=== PATIENT | female | born 1960 | race Caucasian/White ===

== ENCOUNTER 2016-06-26 20:22 | Inpatient (IN) | payer MEDICARE, MEDICAID ==
[2016-06-26] VITALS (16 sets, daily range): BP systolic 123; BP diastolic 90; PULSE 93; TEMP 97.7; O2SAT 90–99
[~2016-06-26] VITALS: Ht 170.2 cm; Wt 82.2 kg
[~2016-06-26 20:22] MED LIST: CALCIUM 600/VIT1 CAP PO; CELEBREX 200MG200 MG PO; COLACE 100100 MG/CAP PO; COUMADIN 5MG5 MG/TAB PO; COUMADIN 77.5 MG/TAB PO; FLEXERIL 1010 MG/TAB PO; FOLIC ACID 11 MG/TA1 PO; HCTZ 25MG TAB25 MG; HCTZ12.5TAB PO; IRON325 M1 PO; LASIX 20MG TABL20 MG PO; MIRALAX PA17 GM/Dose PO; NATURE'S BLEND100 M2 PO; PEPCID 20MG TAB20 MG PO; PERCOCET 325 MG1 TA2 PO; PROTONIX 40MG T40 MG PO; RELAFEN750 MG PO; RT ADVAIR 528 DISKUS IH; THERAGRAN TAB1 UDTAB PO; TYLENOL 325MG325 MG PO; VALIUM 5MG T5 MG/TAB PO; ZESTRIL 20MG TA20 MG PO
[2016-06-26 21:14] LABS: BASO % 0.9 % (0.0-2.0); EOS # 0.1 (0.0-0.7); EOS % 1.2 % (0-4.0); GRAN # 2.5 (1.4-6.5); GRAN % 57.5 % (42.2-75.2); LYMPH # 1.1 (1.2-3.4); LYMPH % 25.6 % (20.0-51.0); MEAN CELL VOLUME 110 fl (80.0-100.0); MEAN CORPUSCULAR HGB CONC 33 g/dl (33.0-37.0); MEAN PLATELET VOLUME 8.7 fl (7.4-10.4); MONO # 0.6 (0.1-0.6); MONO % 13.6 % (1.7-9.3); PLATELET COUNT 271 K/mm3 (130-400); RED BLOOD COUNT 2.11 M/mm3 (4.10-5.30); REDCELL DISTRIBUTION WIDTH-CV 14.8 % (11.5-14.5); WHITE BLOOD COUNT 4.3 K/mm3 (4.8-10.8)
[2016-06-26 21:16] LABS: HEMATOCRIT 23.2 % (37.0-47.0); HEMOGLOBIN 7.6 g/dl (12.5-16.0); MEAN CORPUSCULAR HEMOGLOBIN 36 pg (27.0-31.0)
[2016-06-26 21:21] LABS: PROTHROMBIN TIME 11.4 SECONDS (9.7-12.8)
[2016-06-26 21:25] LABS: ADJUSTED CALCIUM 7.9 mg/dL (8.4-10.2); ALANINE AMINOTRANSFERASE 53 U/L (9-52); ALBUMIN 4.8 gm/dL (3.5-5.0); ALKALINE PHOSPHATASE 159 U/L (50-136); ANION GAP 23 mmol/L (7-16); BILIRUBIN,TOTAL 1.5 mg/dL (0.0-1.0); BLOOD UREA NITROGEN 17 mg/dL (7-17); CALCIUM 8.5 mg/dL (8.4-10.2); CARBON DIOXIDE 26 mmol/L (22-30); CHLORIDE 90 mmol/L (98-107); CREATININE, serum 1.16 mg/dL (0.52-1.25); GLUCOSE 88 mg/dL (74-106); LIPASE 190 U/L (23-300); POTASSIUM 3.6 mmol/L (3.4-5.0); SODIUM 139 mmol/L (137-145); TOTAL PROTEIN 7.4 gm/dL (6.4-8.2)
[2016-06-26 21:47] LABS: TROPONIN-I < 0.012 ng/mL (0.000-0.034)
[2016-06-27] VITALS (922 sets, daily range): BP systolic 99–137; BP diastolic 17–99; PULSE 89–134; TEMP 97.7–99.3; O2SAT 62–100
[2016-06-27 06:16] LABS: MEAN CELL VOLUME 113 fl (80.0-100.0); MEAN CORPUSCULAR HGB CONC 32 g/dl (33.0-37.0); MEAN PLATELET VOLUME 8.8 fl (7.4-10.4); PLATELET COUNT 203 K/mm3 (130-400); RED BLOOD COUNT 1.67 M/mm3 (4.10-5.30); REDCELL DISTRIBUTION WIDTH-CV 14.8 % (11.5-14.5); WHITE BLOOD COUNT 3.1 K/mm3 (4.8-10.8)
[2016-06-27 06:19] LABS: HEMATOCRIT 18.8 % (37.0-47.0); MEAN CORPUSCULAR HEMOGLOBIN 36 pg (27.0-31.0)
[2016-06-27 06:22] LABS: ADD PATHOLOGY DIFF REVIEW NO
[2016-06-27 06:30] LABS: CALCIUM 7.4 mg/dL (8.4-10.2); CREATININE, serum 1.14 mg/dL (0.52-1.25); POTASSIUM 3.4 mmol/L (3.4-5.0)
[2016-06-27 07:27] LABS: BAND 12 % (0-10); BASOPHIL 1 % (0-2); EOSINOPHIL 3 % (0-4); METAMYELOCYTE 2 % (0-0); MICROCYTOSIS 1+; NEUTROPHILS 51 % (42.0-75.2); PLATELET ESTIMATE NORMAL (NORMAL); TOTAL CELLS COUNTED 100
[2016-06-28] VITALS (371 sets, daily range): BP systolic 104–155; BP diastolic 66–93; PULSE 86–108; TEMP 97.2–99; O2SAT 53–100
[2016-06-28 06:14] LABS: MEAN CELL VOLUME 113 fl (80.0-100.0); MEAN CORPUSCULAR HGB CONC 32 g/dl (33.0-37.0); MEAN PLATELET VOLUME 8.9 fl (7.4-10.4); PLATELET COUNT 175 K/mm3 (130-400); RED BLOOD COUNT 1.69 M/mm3 (4.10-5.30); REDCELL DISTRIBUTION WIDTH-CV 14.6 % (11.5-14.5)
[2016-06-28 06:20] LABS: HEMATOCRIT 19.1 % (37.0-47.0); HEMOGLOBIN 6.1 g/dl (12.5-16.0); MEAN CORPUSCULAR HEMOGLOBIN 36 pg (27.0-31.0)
[2016-06-28 06:31] LABS: ADJUSTED CALCIUM 8.3 mg/dL (8.4-10.2); ALBUMIN 3.6 gm/dL (3.5-5.0); BILIRUBIN,TOTAL 1.5 mg/dL (0.0-1.0); CREATININE, serum 1.17 mg/dL (0.52-1.25); MAGNESIUM 1.5 mg/dL (1.6-2.3); POTASSIUM 3.4 mmol/L (3.4-5.0)
[2016-06-29] VITALS (1126 sets, daily range): BP systolic 130–157; BP diastolic 84–111; PULSE 91–105; TEMP 97–98.4; O2SAT 60–100
[2016-06-29 06:05] LABS: HEMATOCRIT 19.9 % (37.0-47.0); HEMOGLOBIN 6.3 g/dl (12.5-16.0)
[2016-06-29 06:18] LABS: CALCIUM 8.6 mg/dL (8.4-10.2); CREATININE, serum 0.96 mg/dL (0.52-1.25); MAGNESIUM 1.9 mg/dL (1.6-2.3); POTASSIUM 3.4 mmol/L (3.4-5.0)
[2016-06-30] VITALS (717 sets, daily range): BP systolic 126–170; BP diastolic 88–111; PULSE 90–114; TEMP 97.2–98.9; O2SAT 72–100
[2016-07-01] VITALS (12 sets, daily range): BP systolic 103–156; BP diastolic 58–98; PULSE 94–106; TEMP 98.3–100.7
[2016-07-01 07:07] LABS: BASO % 0.6 % (0.0-2.0); EOS # 0.2 (0.0-0.7); EOS % 5.1 % (0-4.0); GRAN # 1.9 (1.4-6.5); GRAN % 57.6 % (42.2-75.2); LYMPH # 0.6 (1.2-3.4); LYMPH % 16.7 % (20.0-51.0); MEAN CELL VOLUME 114 fl (80.0-100.0); MEAN CORPUSCULAR HGB CONC 31 g/dl (33.0-37.0); MEAN PLATELET VOLUME 9.1 fl (7.4-10.4); MONO # 0.6 (0.1-0.6); MONO % 18.8 % (1.7-9.3); PLATELET COUNT 176 K/mm3 (130-400); REDCELL DISTRIBUTION WIDTH-CV 14.6 % (11.5-14.5); WHITE BLOOD COUNT 3.4 K/mm3 (4.8-10.8)
[2016-07-01 07:14] LABS: HEMATOCRIT 20.5 % (37.0-47.0); HEMOGLOBIN 6.4 g/dl (12.5-16.0)
[2016-07-01 07:18] LABS: ALBUMIN 3.4 gm/dL (3.5-5.0); BILIRUBIN,TOTAL 1.2 mg/dL (0.0-1.0); CALCIUM 9.5 mg/dL (8.4-10.2); CREATININE, serum 0.88 mg/dL (0.52-1.25); POTASSIUM 3.7 mmol/L (3.4-5.0)
[2016-07-01 08:19] LABS: MEAN CORPUSCULAR HEMOGLOBIN 36 pg (27.0-31.0)
[2016-07-01 08:50] LABS: BILIRUBIN,DIRECT 0.7 mg/dL (0.0-0.4)
[2016-07-02] VITALS (11 sets, daily range): BP systolic 123–153; BP diastolic 77–94; PULSE 95–119; TEMP 97.7–98.9
[2016-07-02 12:30] LABS: RETIC % 6.3 % (0.5-3.52)
[2016-07-02 12:52] LABS: LACTATE DEHYDROGENASE 897 U/L (313-618)
[2016-07-02 13:01] LABS: TOTAL IRON BINDING CAPACITY 275 ug/dL (265-497)
[2016-07-02 13:28] LABS: FERRITIN 211 ng/mL (11-264)
[2016-07-03] VITALS (10 sets, daily range): BP systolic 130–165; BP diastolic 72–96; PULSE 105–116; TEMP 97–98.9
[2016-07-04] VITALS (9 sets, daily range): BP systolic 144–170; BP diastolic 89–105; PULSE 99–111; TEMP 98.1–99.2
[2016-07-04 15:38] LABS: HEMATOCRIT 26.7 % (37.0-47.0); HEMOGLOBIN 8.8 g/dl (12.5-16.0); MEAN CELL VOLUME 100 fl (80.0-100.0); MEAN CORPUSCULAR HEMOGLOBIN 33 pg (27.0-31.0); MEAN CORPUSCULAR HGB CONC 33 g/dl (33.0-37.0); MEAN PLATELET VOLUME 9.7 fl (7.4-10.4); PLATELET COUNT 245 K/mm3 (130-400); RED BLOOD COUNT 2.66 M/mm3 (4.10-5.30); REDCELL DISTRIBUTION WIDTH-CV 21.2 % (11.5-14.5); WHITE BLOOD COUNT 4.4 K/mm3 (4.8-10.8)
[2016-07-04 15:48] LABS: CALCIUM 9.4 mg/dL (8.4-10.2); CREATININE, serum 0.86 mg/dL (0.52-1.25); MAGNESIUM 1.7 mg/dL (1.6-2.3); PHOSPHOROUS 3.7 mg/dL (2.5-4.5); POTASSIUM 3.5 mmol/L (3.4-5.0)
[2016-07-05 03:19] VITALS: BP 184/97; PULSE 105; TEMP 98.6
[2016-07-05 08:14] VITALS: BP 151/92; PULSE 113; TEMP 99
[2016-07-05 11:41] VITALS: BP 164/99; PULSE 100; TEMP 98.9
[2016-07-05 13:39] LABS: ALBUMIN FRACTION 3.8 g/dL (2.6-4.5); ALBUMIN PERCENTAGE 60.7 % (48.7-61.8); ALPHA 1 FRACTION 0.4 g/dL (0.3-0.5); ALPHA 1 PERCENTAGE 5.8 % (3.4-8.3); ALPHA 2 FRACTION 0.8 g/dL (0.6-1.2); ALPHA 2 PERCENTAGE 12.2 % (8.4-17.5); BETA 1 FRACTION 0.4 g/dL (0.4-0.6); BETA 1 PERCENTAGE 5.6 % (5.4-8.9); BETA 2 FRACTION 0.3 g/dL (0.2-0.5); GAMMA FRACTION 0.7 g/dL (0.4-1.7); GAMMA PERCENTAGE 10.7 % (8.1-23.0); SERUM PROTEIN TOTAL 6.2 g/dL (6.1-7.7)
[2016-07-05 16:41] LABS: KAPPA FREE LIGHT CHAIN-SERUM 2.65 mg/dL (()); KAPPA LAMBDA RATIO 1.91 (())
[2016-07-05 17:08] VITALS: BP 143/87; PULSE 101; TEMP 99
[2016-07-05 19:17] VITALS: BP 147/84; PULSE 100; TEMP 98.6
[2016-07-05 22:56] VITALS: BP 142/95; PULSE 103; TEMP 98.7
[2016-07-06 04:30] VITALS: BP 138/84; PULSE 116; TEMP 99.7
[2016-07-06 08:12] VITALS: BP 137/82; PULSE 112; TEMP 99.3
[2016-07-06 08:53] LABS: BASO % 0.4 % (0.0-2.0); EOS # 0.2 (0.0-0.7); EOS % 3.2 % (0-4.0); GRAN # 2.9 (1.4-6.5); GRAN % 60.7 % (42.2-75.2); LYMPH # 0.9 (1.2-3.4); MEAN CELL VOLUME 102 fl (80.0-100.0); MEAN CORPUSCULAR HGB CONC 33 g/dl (33.0-37.0); MEAN PLATELET VOLUME 9.8 fl (7.4-10.4); MONO # 0.8 (0.1-0.6); MONO % 16.1 % (1.7-9.3); RED BLOOD COUNT 2.87 M/mm3 (4.10-5.30); REDCELL DISTRIBUTION WIDTH-CV 19.1 % (11.5-14.5); WHITE BLOOD COUNT 4.7 K/mm3 (4.8-10.8)
[2016-07-06 09:11] LABS: HEMATOCRIT 29.2 % (37.0-47.0); HEMOGLOBIN 9.5 g/dl (12.5-16.0); MEAN CORPUSCULAR HEMOGLOBIN 33 pg (27.0-31.0); PLATELET COUNT 381 K/mm3 (130-400)
[2016-07-06 09:24] LABS: ADJUSTED CALCIUM 9.7 mg/dL (8.4-10.2); ALBUMIN 3.5 gm/dL (3.5-5.0); BILIRUBIN,TOTAL 1.2 mg/dL (0.0-1.0); CALCIUM 9.3 mg/dL (8.4-10.2); CREATININE, serum 0.83 mg/dL (0.52-1.25); POTASSIUM 3.7 mmol/L (3.4-5.0); TOTAL PROTEIN 6.4 gm/dL (6.4-8.2)
[2016-07-06 12:00] VITALS: BP 147/80; PULSE 117; TEMP 98.8
[2016-07-06 15:45] VITALS: BP 146/87; PULSE 113; TEMP 99.1
[2016-07-06 16:32] LABS: PH 5 (5-8); URINE APPEARANCE Cloudy; URINE BACTERIA None Seen /hpf; URINE BILIRUBIN Negative (NEGATIVE); URINE BLOOD 1+ (NEGATIVE); URINE COLOR Amber; URINE GLUCOSE Negative (NEGATIVE); URINE KETONE 1+ (NEGATIVE); URINE RBC 0-2 /hpf; URINE UROBILINOGEN Negative (NEGATIVE)
[2016-07-06 19:49] VITALS: BP 105/76; PULSE 114; TEMP 99.5
[2016-07-07] VITALS (7 sets, daily range): BP systolic 120–154; BP diastolic 80–97; PULSE 84–109; TEMP 97.8–99.4
[2016-07-07 11:00] LABS: BASO # 0.1 (0.0-0.2); BASO % 1.1 % (0.0-2.0); EOS # 0.2 (0.0-0.7); GRAN # 2.7 (1.4-6.5); GRAN % 59.1 % (42.2-75.2); LYMPH % 20.5 % (20.0-51.0); MEAN CELL VOLUME 102 fl (80.0-100.0); MEAN CORPUSCULAR HGB CONC 33 g/dl (33.0-37.0); MEAN PLATELET VOLUME 10.1 fl (7.4-10.4); MONO # 0.6 (0.1-0.6); MONO % 13.4 % (1.7-9.3); PLATELET COUNT 382 K/mm3 (130-400); RED BLOOD COUNT 2.69 M/mm3 (4.10-5.30); REDCELL DISTRIBUTION WIDTH-CV 18.5 % (11.5-14.5); WHITE BLOOD COUNT 4.6 K/mm3 (4.8-10.8)
[2016-07-07 11:02] LABS: HEMATOCRIT 27.3 % (37.0-47.0); HEMOGLOBIN 8.9 g/dl (12.5-16.0); MEAN CORPUSCULAR HEMOGLOBIN 33 pg (27.0-31.0)
[2016-07-07 11:19] LABS: ADJUSTED CALCIUM 9.9 mg/dL (8.4-10.2); ALBUMIN 3.2 gm/dL (3.5-5.0); CALCIUM 9.3 mg/dL (8.4-10.2); CREATININE, serum 0.75 mg/dL (0.52-1.25); POTASSIUM 3.4 mmol/L (3.4-5.0); TOTAL PROTEIN 5.9 gm/dL (6.4-8.2)
[2016-07-08 02:46] VITALS: BP 156/87; PULSE 87; TEMP 97.4
[2016-07-08 07:00] LABS: BASO # 0.1 (0.0-0.2); BASO % 0.9 % (0.0-2.0); EOS # 0.2 (0.0-0.7); EOS % 4.2 % (0-4.0); GRAN # 3.3 (1.4-6.5); GRAN % 58.7 % (42.2-75.2); LYMPH # 1.3 (1.2-3.4); LYMPH % 22.8 % (20.0-51.0); MEAN CELL VOLUME 101 fl (80.0-100.0); MEAN CORPUSCULAR HGB CONC 32 g/dl (33.0-37.0); MEAN PLATELET VOLUME 9.9 fl (7.4-10.4); MONO # 0.7 (0.1-0.6); MONO % 12.3 % (1.7-9.3); PLATELET COUNT 408 K/mm3 (130-400); RED BLOOD COUNT 2.78 M/mm3 (4.10-5.30); REDCELL DISTRIBUTION WIDTH-CV 17.7 % (11.5-14.5); WHITE BLOOD COUNT 5.7 K/mm3 (4.8-10.8)
[2016-07-08 07:05] LABS: MEAN CORPUSCULAR HEMOGLOBIN 32 pg (27.0-31.0)
[2016-07-08 07:22] LABS: ADJUSTED CALCIUM 9.8 mg/dL (8.4-10.2); ALBUMIN 3.4 gm/dL (3.5-5.0); BILIRUBIN,TOTAL 0.9 mg/dL (0.0-1.0); CALCIUM 9.3 mg/dL (8.4-10.2); CREATININE, serum 0.86 mg/dL (0.52-1.25); POTASSIUM 3.7 mmol/L (3.4-5.0); TOTAL PROTEIN 6.3 gm/dL (6.4-8.2)
[2016-07-08 07:39] VITALS: BP 122/89; PULSE 104; TEMP 97.8
[2016-07-08 11:43] VITALS: BP 126/80; PULSE 89; TEMP 97.9
[2016-07-08 15:47] VITALS: BP 128/78; PULSE 85; TEMP 97.8
[2016-07-08 20:48] VITALS: BP 132/85; PULSE 81; TEMP 97.6
[2016-07-08 23:50] VITALS: BP 141/83; PULSE 80; TEMP 97.9
[2016-07-09 03:40] VITALS: BP 131/77; PULSE 88; TEMP 98
[2016-07-09 08:32] VITALS: BP 125/74; PULSE 86; TEMP 98.1
[2016-07-09 09:45] LABS: BASO # 0.1 (0.0-0.2); BASO % 0.9 % (0.0-2.0); EOS # 0.2 (0.0-0.7); EOS % 4.3 % (0-4.0); GRAN # 3.1 (1.4-6.5); GRAN % 57.9 % (42.2-75.2); LYMPH # 1.4 (1.2-3.4); MEAN CELL VOLUME 101 fl (80.0-100.0); MEAN CORPUSCULAR HGB CONC 32 g/dl (33.0-37.0); MEAN PLATELET VOLUME 10.2 fl (7.4-10.4); MONO # 0.5 (0.1-0.6); MONO % 9.6 % (1.7-9.3); RED BLOOD COUNT 2.88 M/mm3 (4.10-5.30); REDCELL DISTRIBUTION WIDTH-CV 17.4 % (11.5-14.5); WHITE BLOOD COUNT 5.3 K/mm3 (4.8-10.8)
[2016-07-09 09:51] LABS: ADJUSTED CALCIUM 9.7 mg/dL (8.4-10.2); ALBUMIN 3.7 gm/dL (3.5-5.0); BILIRUBIN,TOTAL 0.9 mg/dL (0.0-1.0); CALCIUM 9.5 mg/dL (8.4-10.2); CREATININE, serum 0.99 mg/dL (0.52-1.25); POTASSIUM 3.5 mmol/L (3.4-5.0); TOTAL PROTEIN 6.6 gm/dL (6.4-8.2)
[2016-07-09 09:55] LABS: HEMATOCRIT 29.1 % (37.0-47.0); HEMOGLOBIN 9.4 g/dl (12.5-16.0); MEAN CORPUSCULAR HEMOGLOBIN 33 pg (27.0-31.0); PLATELET COUNT 524 K/mm3 (130-400)
[2016-07-09] MEDS ORDERED: FERROUS SU325 MG/TAB PO (09:59)
[2016-07-09] MEDS ORDERED: INDOCIN 25MG CA25 MG PO (09:59)
[2016-07-09] MEDS ORDERED: DESYREL 50MG50 MG PO (10:01)
[2016-07-09] MEDS ORDERED: ZOLOFT 100MG100 MG PO (10:01)
[2016-07-09] MEDS ORDERED: RISPERDAL 0.5M0.5 MG PO (10:02)
[2016-07-09] MEDS ORDERED: PROTONIX 40MG T40 MG PO (10:02)
[2016-07-09] MEDS ORDERED: MAG-OX 400400 MG/TAB PO (10:03)
[2016-07-09] MEDS ORDERED: SYNTHROID0.05 MG/TA PO (10:03)
[2016-07-09 12:48] VITALS: BP 115/82; PULSE 84; TEMP 98.1
[2016-07-09] MEDS ORDERED: K-TAB10 PO (13:57)
[2016-07-09 14:33] VITALS: BP 115/82; PULSE 84; TEMP 98.1
== END 2016-07-09 15:05 | DRG 897 ==
LOC: COL.ER 20:22 → ICU 22:35 → MEDICAL 06-30 13:00
PROVIDERS: Emergency Medicine; Family Medicine; Internal Medicine
DX: F10.231 Alcohol dependence with withdrawal delirium (principal); Y90.7 Blood alcohol level of 200-239 mg/100 ml; I10 Essential (primary) hypertension; K70.10 Alcoholic hepatitis without ascites; F10.251 Alcohol dependence with alcohol-induced psychotic disorder with hallucinations; S20.01XA Contusion of right breast, initial encounter; E83.42 Hypomagnesemia; E86.0 Dehydration; M10.9 Gout, unspecified; M70.41 Prepatellar bursitis, right knee; W18.30XA Fall on same level, unspecified, initial encounter; D50.9 Iron deficiency anemia, unspecified; R26.0 Ataxic gait
CPT/HCPCS: 90791-AI; 99222-AI; 99232-AI; 99233-AI; 99239; A9585; C9113; J1630; J1650; J1940; J2060; J2405; J3360; J3411; J3475; J7030; J7120; P9016

== ENCOUNTER 2016-07-24 01:33 | Emergency (ER) | payer MEDICARE, MEDICAID ==
[~2016-07-24] VITALS: Ht 170.2 cm; Wt 81.4 kg
[~2016-07-24 01:33] MED LIST changes: +DESYREL 50MG50 MG PO; +FERROUS SU325 MG/TAB PO; +INDOCIN 25MG CA25 MG PO; +K-TAB10 PO; +MAG-OX 400400 MG/TAB PO; +RISPERDAL 0.5M0.5 MG PO; +SYNTHROID0.05 MG/TA PO; +ZOLOFT 100MG100 MG PO
[2016-07-24 01:37] VITALS: BP 155/92; PULSE 97; TEMP 98.3
[2016-07-24] MEDS ORDERED: CLEOCIN HC150 MG/CAP PO (02:19)
== END 2016-07-24 02:55 | disposition home or self-care (01) ==
LOC: COL.ER 01:33
DX: K08.89 Other specified disorders of teeth and supporting structures (principal); I10 Essential (primary) hypertension; E03.9 Hypothyroidism, unspecified

== ENCOUNTER → 2016-07-26 | Outpatient (CLI) | payer MEDICARE, MEDICAID ==
[~2016-07-26] MED LIST changes: +CLEOCIN HC150 MG/CAP PO
== END ==
LOC: BHSO 09:54
DX: F10.20 Alcohol dependence, uncomplicated (principal)

== ENCOUNTER → 2016-07-30 | Outpatient (CLI) | payer MEDICARE, MEDICAID ==
[2016-07-30 14:24] LABS: BASO # 0.1 (0.0-0.2); BASO % 0.9 % (0.0-2.0); EOS # 0.6 (0.0-0.7); EOS % 9.7 % (0-4.0); GRAN # 3.5 (1.4-6.5); GRAN % 55.5 % (42.2-75.2); LYMPH # 1.4 (1.2-3.4); LYMPH % 22.3 % (20.0-51.0); MEAN CELL VOLUME 99 fl (80.0-100.0); MEAN CORPUSCULAR HGB CONC 32 g/dl (33.0-37.0); MEAN PLATELET VOLUME 10.9 fl (7.4-10.4); MONO # 0.7 (0.1-0.6); MONO % 11.1 % (1.7-9.3); PLATELET COUNT 344 K/mm3 (130-400); RED BLOOD COUNT 2.89 M/mm3 (4.10-5.30); REDCELL DISTRIBUTION WIDTH-CV 16.3 % (11.5-14.5); WHITE BLOOD COUNT 6.4 K/mm3 (4.8-10.8)
[2016-07-30 14:26] LABS: ADJUSTED CALCIUM 10.2 mg/dL (8.4-10.2); ALBUMIN 3.2 gm/dL (3.5-5.0); BILIRUBIN,TOTAL 0.6 mg/dL (0.0-1.0); CALCIUM 9.6 mg/dL (8.4-10.2); CREATININE, serum 1.58 mg/dL (0.52-1.25); TOTAL PROTEIN 5.6 gm/dL (6.4-8.2)
[2016-07-30 14:35] LABS: POTASSIUM 5.9 mmol/L (3.4-5.0)
[2016-07-30 14:36] LABS: HEMATOCRIT 28.6 % (37.0-47.0); HEMOGLOBIN 9.2 g/dl (12.5-16.0); MEAN CORPUSCULAR HEMOGLOBIN 32 pg (27.0-31.0)
== END ==
LOC: ZLAB.STJ 14:14
PROVIDERS: Internal Medicine
DX: K04.7 Periapical abscess without sinus (principal); R11.10 Vomiting, unspecified; R68.83 Chills (without fever)

== ENCOUNTER → 2016-08-02 | Outpatient (REF) ==
[2016-08-02 09:25] LABS: ADJUSTED CALCIUM 10.3 mg/dL (8.4-10.2); ALBUMIN 2.8 gm/dL (3.5-5.0); BILIRUBIN,TOTAL 0.6 mg/dL (0.0-1.0); CALCIUM 9.3 mg/dL (8.4-10.2); CREATININE, serum 1.51 mg/dL (0.52-1.25); POTASSIUM 4.7 mmol/L (3.4-5.0)
== END ==
LOC: ZLAB.STJ 09:08
PROVIDERS: Physician Assistant Medical
DX: Z01.89 Encounter for other specified special examinations (principal)

== ENCOUNTER → 2016-08-27 | Outpatient (CLI) | payer MEDICARE, MEDICAID | LOC: BHSO 09:55 | DX: F10.20 Alcohol dependence, uncomplicated (principal) ==

== ENCOUNTER 2017-01-02 21:51 | Emergency (ER) | payer MEDICARE, MEDICAID ==
[~2017-01-02] VITALS: Ht 152.4 cm; Wt 72.7 kg
[2017-01-02 21:57] VITALS: TEMP 96.8
[2017-01-02 22:50] LABS: HEMATOCRIT 20.4 % (37.0-47.0); HEMOGLOBIN 7.3 g/dl (12.5-16.0); MEAN CELL VOLUME 100 fl (80.0-100.0); MEAN CORPUSCULAR HEMOGLOBIN 36 pg (27.0-31.0); MEAN CORPUSCULAR HGB CONC 36 g/dl (33.0-37.0); MEAN PLATELET VOLUME 9.3 fl (7.4-10.4); PLATELET COUNT 398 K/mm3 (130-400); RED BLOOD COUNT 2.05 M/mm3 (4.10-5.30); WHITE BLOOD COUNT 7.9 K/mm3 (4.8-10.8)
[2017-01-02 22:52] LABS: ADD PATHOLOGY DIFF REVIEW NO; INR 1.2 (0.8-3.0); PROTHROMBIN TIME 13.9 SECONDS (9.7-12.8)
[2017-01-02 23:00] LABS: BAND 19 % (0-10); LYMPHOCYTE 6 % (20.0-51.0); NEUTROPHILS 68 % (42.0-75.2); PLATELET ESTIMATE NORMAL (NORMAL); TOTAL CELLS COUNTED 100
[2017-01-02 23:08] LABS: ADJUSTED CALCIUM 8.4 mg/dL (8.4-10.2); ALANINE AMINOTRANSFERASE 34 U/L (9-52); ALBUMIN 3.5 gm/dL (3.5-5.0); ALKALINE PHOSPHATASE 131 U/L (50-136); ANION GAP 17 mmol/L (7-16); BILIRUBIN,TOTAL 1.9 mg/dL (0.0-1.0); BLOOD UREA NITROGEN 73 mg/dL (7-17); CARBON DIOXIDE 26 mmol/L (22-30); CREATININE, serum 1.68 mg/dL (0.52-1.25); GLUCOSE 134 mg/dL (74-106); SODIUM 120 mmol/L (137-145); TOTAL PROTEIN 6.1 gm/dL (6.4-8.2)
[2017-01-02 23:09] LABS: ALCOHOL(ethanol),MEDICAL < 10 mg/dL
[2017-01-02 23:10] LABS: CHLORIDE 77 mmol/L (98-107); POTASSIUM 2.7 mmol/L (3.4-5.0)
[2017-01-02 23:17] LABS: COLLECTION METHOD CATHETER
[2017-01-02 23:22] LABS: AMORPHOUS CRYSTAL Present /uL; MUCOUS Present /lpf; PH 5 (5-8); URINE APPEARANCE Cloudy; URINE BACTERIA None Seen /hpf; URINE BILIRUBIN Negative (NEGATIVE); URINE BLOOD Negative (NEGATIVE); URINE COLOR Amber; URINE GLUCOSE Negative (NEGATIVE); URINE KETONE Negative (NEGATIVE); URINE LEUKOCYTE ESTERASE Negative (NEGATIVE); URINE PROTEIN(semi-quant) Negative (NEGATIVE); URINE RBC 0-2 /hpf; URINE WBC 0-2 /hpf
[2017-01-02 23:24] LABS: LIPASE 4213 U/L (23-300)
[2017-01-03 00:40] VITALS: BP 107/90; PULSE 102
== END 2017-01-03 00:50 | disposition short-term general hospital (02) ==
LOC: COL.ER 21:51
PROVIDERS: Emergency Medicine
DX: S09.90XA Unspecified injury of head, initial encounter (principal); S01.01XA Laceration without foreign body of scalp, initial encounter; S37.009A Unspecified injury of unspecified kidney, initial encounter; K85.90 Acute pancreatitis without necrosis or infection, unspecified; D64.9 Anemia, unspecified; E87.6 Hypokalemia; E87.1 Hypo-osmolality and hyponatremia; Z23 Encounter for immunization; W19.XXXA Unspecified fall, initial encounter
CPT/HCPCS: C9113; J1956; J2354; J2405; J3411; J3475; J3480; J7030; J7040

== ENCOUNTER 2017-03-11 18:28 | Emergency (ER) | payer MEDICARE, MEDICAID ==
[~2017-03-11] VITALS: Ht 167.6 cm; Wt 63.6 kg
[~2017-03-11 18:28] MED LIST changes: +00186-0372-20 IH; +CALCIUM CARB W/1 TA1 PO; +CYMBALTA 60MG60 MG PO; +INDOCIN50 MG PO; +IRON TABLETS325 MG PO; +KLOR-CON 1010 MEQ PO; +LASIX 40MG TABL40 MG PO; +MULTIVITAMIN PO; +RISPERDAL 1M1 MG/TAB PO
[2017-03-11 18:30] VITALS: BP 111/76; TEMP 98.7
[2017-03-11] MEDS ORDERED: NORCO 325 MG-7.1 TAB PO (19:36)
[2017-03-11 19:46] VITALS: PULSE 94
== END 2017-03-11 19:47 | disposition home or self-care (01) ==
LOC: COL.ER 18:28
DX: G89.29 Other chronic pain (principal); R10.13 Epigastric pain; R10.12 Left upper quadrant pain; I10 Essential (primary) hypertension

== ENCOUNTER → 2017-03-18 | Outpatient (CLI) | payer MEDICARE, MEDICAID ==
[~2017-03-18] MED LIST changes: +NORCO 325 MG-7.1 TAB PO
[2017-03-18 14:33] LABS: BASO # 0.1 (0.0-0.2); BASO % 1.1 % (0.0-2.0); EOS # 0.3 (0.0-0.7); EOS % 4.7 % (0-4.0); GRAN # 2.9 (1.4-6.5); GRAN % 52.9 % (42.2-75.2); LYMPH # 1.7 (1.2-3.4); LYMPH % 30.7 % (20.0-51.0); MEAN CELL VOLUME 97 fl (80.0-100.0); MEAN CORPUSCULAR HGB CONC 32 g/dl (33.0-37.0); MEAN PLATELET VOLUME 10.5 fl (7.4-10.4); MONO # 0.6 (0.1-0.6); MONO % 10.4 % (1.7-9.3); PLATELET COUNT 426 K/mm3 (130-400); RED BLOOD COUNT 3.43 M/mm3 (4.10-5.30); REDCELL DISTRIBUTION WIDTH-CV 15.3 % (11.5-14.5)
[2017-03-18 14:35] LABS: HEMATOCRIT 33.4 % (37.0-47.0); HEMOGLOBIN 10.8 g/dl (12.5-16.0); MEAN CORPUSCULAR HEMOGLOBIN 31 pg (27.0-31.0)
[2017-03-18 14:39] LABS: CALCIUM 8.8 mg/dL (8.4-10.2); CREATININE, serum 0.8 mg/dL (0.52-1.25); POTASSIUM 3.6 mmol/L (3.4-5.0)
== END ==
LOC: COL.LAB 11:14
PROVIDERS: Family Medicine
DX: K31.89 Other diseases of stomach and duodenum (principal); D64.9 Anemia, unspecified; E87.6 Hypokalemia

== ENCOUNTER 2017-05-02 15:50 | Emergency (ER) | payer MEDICARE, MEDICAID ==
[~2017-05-02] VITALS: Ht 167.6 cm; Wt 63.6 kg
[2017-05-02 15:55] VITALS: TEMP 98.7
[2017-05-02 16:28] LABS: BASO # 0.1 (0.0-0.2); BASO % 1.5 % (0.0-2.0); EOS % 0.9 % (0-4.0); GRAN # 1.7 (1.4-6.5); GRAN % 49.2 % (42.2-75.2); LYMPH # 1.1 (1.2-3.4); LYMPH % 33.1 % (20.0-51.0); MEAN CELL VOLUME 100 fl (80.0-100.0); MEAN CORPUSCULAR HGB CONC 34 g/dl (33.0-37.0); MEAN PLATELET VOLUME 8.6 fl (7.4-10.4); MONO # 0.5 (0.1-0.6); MONO % 14.7 % (1.7-9.3); PLATELET COUNT 167 K/mm3 (130-400); RED BLOOD COUNT 3.24 M/mm3 (4.10-5.30); REDCELL DISTRIBUTION WIDTH-CV 15.9 % (11.5-14.5)
[2017-05-02 16:33] LABS: HEMATOCRIT 32.5 % (37.0-47.0); MEAN CORPUSCULAR HEMOGLOBIN 34 pg (27.0-31.0)
[2017-05-02 16:59] LABS: ALANINE AMINOTRANSFERASE 33 U/L (9-52); ALBUMIN 3.5 gm/dL (3.5-5.0); ALCOHOL(ethanol),MEDICAL 214 mg/dL; ALKALINE PHOSPHATASE 140 U/L (50-136); ANION GAP 21 mmol/L (7-16); AST,SGOT 74 U/L (15-37); BILIRUBIN,TOTAL 0.3 mg/dL (0.0-1.0); BLOOD UREA NITROGEN 12 mg/dL (7-17); CALCIUM 8.5 mg/dL (8.4-10.2); CARBON DIOXIDE 18 mmol/L (22-30); CHLORIDE 104 mmol/L (98-107); CREATININE, serum 0.69 mg/dL (0.52-1.25); GLUCOSE 98 mg/dL (74-106); POTASSIUM 3.9 mmol/L (3.4-5.0); SODIUM 143 mmol/L (137-145); TOTAL PROTEIN 6.2 gm/dL (6.4-8.2)
[2017-05-02 17:00] LABS: ACETAMINOPHEN < 10 ug/mL (10-30); SALICYLATE < 1.0 mg/dL
[2017-05-02 17:24] LABS: COLLECTION METHOD CLEAN CATCH
[2017-05-02 17:33] LABS: MUCOUS Present /lpf; PH 5 (5-8); URINE APPEARANCE Hazy; URINE BACTERIA Rare /hpf; URINE BILIRUBIN Negative (NEGATIVE); URINE BLOOD Negative (NEGATIVE); URINE COLOR Yellow; URINE GLUCOSE Negative (NEGATIVE); URINE KETONE 1+ (NEGATIVE); URINE LEUKOCYTE ESTERASE 1+ (NEGATIVE); URINE NITRATE Negative (NEGATIVE); URINE PROTEIN(semi-quant) Negative (NEGATIVE); URINE RBC 0-2 /hpf; URINE UROBILINOGEN Negative (NEGATIVE)
[2017-05-02 17:43] LABS: TRICYCLIC ANTIDEPRESS URINE NEGATIVE
[2017-05-03 01:00] VITALS: BP 110/80; PULSE 120
== END 2017-05-03 02:00 | disposition home or self-care (01) ==
LOC: COL.ER 15:50
PROVIDERS: Emergency Medicine
DX: F10.20 Alcohol dependence, uncomplicated (principal); F32.9 Major depressive disorder, single episode, unspecified; R45.851 Suicidal ideations; Y90.7 Blood alcohol level of 200-239 mg/100 ml; T50.906A Underdosing of unspecified drugs, medicaments and biological substances, initial encounter; Z91.128 Patient's intentional underdosing of medication regimen for other reason; R00.0 Tachycardia, unspecified; Z88.5 Allergy status to narcotic agent; Z88.0 Allergy status to penicillin; Z91.013 Allergy to seafood; Z91.018 Allergy to other foods
CPT/HCPCS: J2060; J3475; J7030

== ENCOUNTER 2017-05-09 15:44 | Emergency (ER) | payer MEDICARE, MEDICAID ==
[~2017-05-09] VITALS: Ht 167.6 cm; Wt 63.6 kg
[2017-05-09 15:52] VITALS: TEMP 98.3
[2017-05-09 16:48] LABS: COLLECTION METHOD CLEAN CATCH
[2017-05-09 16:56] LABS: MUCOUS Present /lpf; PH 5 (5-8); SQUAMOUS EPITHELIAL 0-2 /hpf; URINE APPEARANCE Clear; URINE BACTERIA None Seen /hpf; URINE BILIRUBIN Negative (NEGATIVE); URINE BLOOD Negative (NEGATIVE); URINE COLOR Yellow; URINE GLUCOSE Negative (NEGATIVE); URINE KETONE Trace (NEGATIVE); URINE LEUKOCYTE ESTERASE Negative (NEGATIVE); URINE NITRATE Negative (NEGATIVE); URINE PROTEIN(semi-quant) Negative (NEGATIVE); URINE RBC 0-2 /hpf; URINE UROBILINOGEN Negative (NEGATIVE)
[2017-05-09 17:04] LABS: TRICYCLIC ANTIDEPRESS URINE NEGATIVE
[2017-05-09 17:21] LABS: BASO # 0.1 (0.0-0.2); BASO % 1.4 % (0.0-2.0); EOS % 0.7 % (0-4.0); GRAN % 47.3 % (42.2-75.2); LYMPH # 1.6 (1.2-3.4); MEAN CELL VOLUME 103 fl (80.0-100.0); MEAN CORPUSCULAR HGB CONC 33 g/dl (33.0-37.0); MEAN PLATELET VOLUME 8.6 fl (7.4-10.4); MONO # 0.6 (0.1-0.6); MONO % 12.7 % (1.7-9.3); PLATELET COUNT 188 K/mm3 (130-400); RED BLOOD COUNT 3.14 M/mm3 (4.10-5.30); REDCELL DISTRIBUTION WIDTH-CV 17.2 % (11.5-14.5)
[2017-05-09 17:28] LABS: HEMATOCRIT 32.3 % (37.0-47.0); HEMOGLOBIN 10.8 g/dl (12.5-16.0); MEAN CORPUSCULAR HEMOGLOBIN 34 pg (27.0-31.0)
[2017-05-09 17:39] LABS: ALANINE AMINOTRANSFERASE 44 U/L (9-52); ALBUMIN 3.7 gm/dL (3.5-5.0); ALKALINE PHOSPHATASE 130 U/L (50-136); ANION GAP 20 mmol/L (7-16); AST,SGOT 69 U/L (15-37); BILIRUBIN,TOTAL 0.5 mg/dL (0.0-1.0); BLOOD UREA NITROGEN 11 mg/dL (7-17); CALCIUM 8.5 mg/dL (8.4-10.2); CARBON DIOXIDE 24 mmol/L (22-30); CHLORIDE 104 mmol/L (98-107); CREATININE, serum 0.64 mg/dL (0.52-1.25); GLUCOSE 82 mg/dL (74-106); LIPASE 80 U/L (23-300); POTASSIUM 3.9 mmol/L (3.4-5.0); SODIUM 148 mmol/L (137-145); TOTAL PROTEIN 6.3 gm/dL (6.4-8.2)
[2017-05-09 17:40] LABS: ACETAMINOPHEN < 10 ug/mL (10-30); SALICYLATE < 1.0 mg/dL
[2017-05-09 17:47] LABS: ALCOHOL(ethanol),MEDICAL 331 mg/dL
[2017-05-09 22:11] VITALS: BP 128/94; PULSE 105
== END 2017-05-09 22:14 | disposition home or self-care (01) ==
LOC: COL.ER 15:44
PROVIDERS: Emergency Medicine
DX: F10.129 Alcohol abuse with intoxication, unspecified (principal); I10 Essential (primary) hypertension; J44.1 Chronic obstructive pulmonary disease with (acute) exacerbation; E03.9 Hypothyroidism, unspecified; G89.29 Other chronic pain; Y90.8 Blood alcohol level of 240 mg/100 ml or more
CPT/HCPCS: J2060; J2405; J7030

== ENCOUNTER 2017-05-12 14:43 | Inpatient (IN) | payer MEDICARE, MEDICAID ==
[~2017-05-12] VITALS: Ht 167.6 cm; Wt 65.7 kg
[2017-05-12] VITALS (381 sets, daily range): BP systolic 101–123; BP diastolic 65–100; PULSE 110–128; TEMP 98.4–99.2; O2SAT 91–98
[2017-05-12 15:46] LABS: BASO # 0.1 (0.0-0.2); BASO % 1.3 % (0.0-2.0); EOS % 0.8 % (0-4.0); GRAN # 2.2 (1.4-6.5); GRAN % 55.5 % (42.2-75.2); HEMATOCRIT 28.3 % (37.0-47.0); HEMOGLOBIN 9.6 g/dl (12.5-16.0); LYMPH % 26.1 % (20.0-51.0); MEAN CELL VOLUME 104 fl (80.0-100.0); MEAN CORPUSCULAR HEMOGLOBIN 35 pg (27.0-31.0); MEAN CORPUSCULAR HGB CONC 34 g/dl (33.0-37.0); MONO # 0.6 (0.1-0.6); MONO % 15.5 % (1.7-9.3); PLATELET COUNT 171 K/mm3 (130-400); RED BLOOD COUNT 2.73 M/mm3 (4.10-5.30)
[2017-05-12 15:52] LABS: PROTHROMBIN TIME 11.2 SECONDS (9.7-12.8)
[2017-05-12 15:53] LABS: ALBUMIN 3.2 gm/dL (3.5-5.0); BILIRUBIN,TOTAL 0.5 mg/dL (0.0-1.0); CALCIUM 8.2 mg/dL (8.4-10.2); CREATININE, serum 0.58 mg/dL (0.52-1.25); MAGNESIUM 1.4 mg/dL (1.6-2.3); POTASSIUM 3.7 mmol/L (3.4-5.0); TOTAL PROTEIN 5.9 gm/dL (6.4-8.2)
[2017-05-12 15:54] LABS: PARTIAL THROMBOPLASTIN TIME 27.9 SECONDS (26.0-37.0)
[2017-05-12 16:46] LABS: TSH w REFLEX 5.08 uIU/mL (0.465-4.680)
[2017-05-12 16:59] LABS: COLLECTION METHOD CLEAN CATCH
[2017-05-12 17:13] LABS: MUCOUS Present /lpf; PH 5 (5-8); SQUAMOUS EPITHELIAL 0-2 /hpf; URINE APPEARANCE Hazy; URINE BACTERIA Rare /hpf; URINE BILIRUBIN Negative (NEGATIVE); URINE BLOOD 1+ (NEGATIVE); URINE COLOR Yellow; URINE GLUCOSE Negative (NEGATIVE); URINE KETONE Negative (NEGATIVE); URINE LEUKOCYTE ESTERASE 3+ (NEGATIVE); URINE NITRATE Negative (NEGATIVE); URINE PROTEIN(semi-quant) Negative (NEGATIVE); URINE UROBILINOGEN Negative (NEGATIVE)
[2017-05-12 17:36] LABS: TRICYCLIC ANTIDEPRESS URINE NEGATIVE
[2017-05-13] VITALS (769 sets, daily range): BP systolic 109–131; BP diastolic 74–94; PULSE 97–123; TEMP 98.6–99; O2SAT 90–100
[2017-05-13 05:29] LABS: BASO % 1.3 % (0.0-2.0); EOS # 0.1 (0.0-0.7); EOS % 3.4 % (0-4.0); GRAN # 1.7 (1.4-6.5); GRAN % 52.1 % (42.2-75.2); LYMPH # 0.8 (1.2-3.4); MEAN CELL VOLUME 106 fl (80.0-100.0); MEAN CORPUSCULAR HGB CONC 34 g/dl (33.0-37.0); MEAN PLATELET VOLUME 9.1 fl (7.4-10.4); MONO # 0.5 (0.1-0.6); MONO % 16.6 % (1.7-9.3); PLATELET COUNT 146 K/mm3 (130-400); RED BLOOD COUNT 2.56 M/mm3 (4.10-5.30); REDCELL DISTRIBUTION WIDTH-CV 17.3 % (11.5-14.5)
[2017-05-13 05:41] LABS: ALBUMIN 2.7 gm/dL (3.5-5.0); BILIRUBIN,TOTAL 0.6 mg/dL (0.0-1.0); CREATININE, serum 0.62 mg/dL (0.52-1.25); MAGNESIUM 2.3 mg/dL (1.6-2.3); POTASSIUM 4.1 mmol/L (3.4-5.0); TOTAL PROTEIN 5.2 gm/dL (6.4-8.2)
[2017-05-13 06:12] LABS: HEMATOCRIT 27.2 % (37.0-47.0); HEMOGLOBIN 9.1 g/dl (12.5-16.0); MEAN CORPUSCULAR HEMOGLOBIN 36 pg (27.0-31.0)
[2017-05-14] VITALS (13 sets, daily range): BP systolic 97–129; BP diastolic 64–93; PULSE 94–125; TEMP 97–98.8
[2017-05-14 08:21] LABS: BASO % 0.6 % (0.0-2.0); EOS # 0.1 (0.0-0.7); GRAN % 59.4 % (42.2-75.2); LYMPH # 0.8 (1.2-3.4); LYMPH % 23.5 % (20.0-51.0); MEAN CELL VOLUME 106 fl (80.0-100.0); MEAN CORPUSCULAR HGB CONC 34 g/dl (33.0-37.0); MEAN PLATELET VOLUME 8.9 fl (7.4-10.4); MONO # 0.4 (0.1-0.6); MONO % 11.6 % (1.7-9.3); PLATELET COUNT 140 K/mm3 (130-400); RED BLOOD COUNT 2.82 M/mm3 (4.10-5.30); REDCELL DISTRIBUTION WIDTH-CV 16.8 % (11.5-14.5)
[2017-05-14 08:22] LABS: HEMATOCRIT 29.8 % (37.0-47.0); MEAN CORPUSCULAR HEMOGLOBIN 35 pg (27.0-31.0)
[2017-05-14 08:31] LABS: CALCIUM 8.7 mg/dL (8.4-10.2); CREATININE, serum 0.64 mg/dL (0.52-1.25); MAGNESIUM 2.1 mg/dL (1.6-2.3); POTASSIUM 3.9 mmol/L (3.4-5.0)
[2017-05-15] VITALS (10 sets, daily range): BP systolic 99–118; BP diastolic 65–82; PULSE 101–116; TEMP 98.2–99.7
[2017-05-15 06:40] LABS: MEAN CELL VOLUME 107 fl (80.0-100.0); MEAN CORPUSCULAR HGB CONC 33 g/dl (33.0-37.0); MEAN PLATELET VOLUME 9.4 fl (7.4-10.4); PLATELET COUNT 144 K/mm3 (130-400); RED BLOOD COUNT 2.76 M/mm3 (4.10-5.30); REDCELL DISTRIBUTION WIDTH-CV 17.2 % (11.5-14.5)
[2017-05-15 06:53] LABS: HEMATOCRIT 29.6 % (37.0-47.0); HEMOGLOBIN 9.7 g/dl (12.5-16.0); MEAN CORPUSCULAR HEMOGLOBIN 35 pg (27.0-31.0)
[2017-05-15 06:54] LABS: CALCIUM 8.9 mg/dL (8.4-10.2); CREATININE, serum 0.61 mg/dL (0.52-1.25); POTASSIUM 3.9 mmol/L (3.4-5.0)
[2017-05-15 07:57] LABS: ANISOCYTOSIS 1+; BAND 8 % (0-10); BASOPHIL 1 % (0-2); EOSINOPHIL 3 % (0-4); LYMPHOCYTE 12 % (20.0-51.0); NEUTROPHILS 70 % (42.0-75.2); PLATELET ESTIMATE NORMAL (NORMAL)
[2017-05-16] VITALS (11 sets, daily range): BP systolic 94–131; BP diastolic 64–91; PULSE 85–111; TEMP 97.1–98.9
[2017-05-17] VITALS (9 sets, daily range): BP systolic 92–116; BP diastolic 59–73; PULSE 63–100; TEMP 97.7–99.2
[2017-05-17 01:08] LABS: FOLATE (FOLIC ACID) 15.3 ng/mL (7.0-31.4)
[2017-05-17 07:56] LABS: MEAN CELL VOLUME 108 fl (80.0-100.0); MEAN CORPUSCULAR HGB CONC 32 g/dl (33.0-37.0); MEAN PLATELET VOLUME 9.2 fl (7.4-10.4); PLATELET COUNT 190 K/mm3 (130-400); RED BLOOD COUNT 2.72 M/mm3 (4.10-5.30); REDCELL DISTRIBUTION WIDTH-CV 17.3 % (11.5-14.5)
[2017-05-17 08:01] LABS: HEMATOCRIT 29.3 % (37.0-47.0); HEMOGLOBIN 9.5 g/dl (12.5-16.0); MEAN CORPUSCULAR HEMOGLOBIN 35 pg (27.0-31.0)
[2017-05-17 08:14] LABS: CALCIUM 8.8 mg/dL (8.4-10.2); CREATININE, serum 0.68 mg/dL (0.52-1.25); POTASSIUM 3.8 mmol/L (3.4-5.0)
[2017-05-17 08:53] LABS: ANISOCYTOSIS 1+; BAND 21 % (0-10); BASOPHIL 1 % (0-2); EOSINOPHIL 3 % (0-4); LYMPHOCYTE 36 % (20.0-51.0); NEUTROPHILS 31 % (42.0-75.2); PLATELET ESTIMATE NORMAL (NORMAL)
[2017-05-18 03:27] VITALS: BP 99/62; PULSE 87; TEMP 98.8
[2017-05-18 07:28] LABS: MEAN CELL VOLUME 110 fl (80.0-100.0); MEAN CORPUSCULAR HGB CONC 33 g/dl (33.0-37.0); MEAN PLATELET VOLUME 9.1 fl (7.4-10.4); PLATELET COUNT 228 K/mm3 (130-400); RED BLOOD COUNT 2.63 M/mm3 (4.10-5.30); REDCELL DISTRIBUTION WIDTH-CV 17.1 % (11.5-14.5)
[2017-05-18 07:33] LABS: HEMATOCRIT 28.8 % (37.0-47.0); HEMOGLOBIN 9.4 g/dl (12.5-16.0); MEAN CORPUSCULAR HEMOGLOBIN 36 pg (27.0-31.0)
[2017-05-18 07:48] LABS: CALCIUM 8.8 mg/dL (8.4-10.2); CREATININE, serum 0.68 mg/dL (0.52-1.25); POTASSIUM 3.7 mmol/L (3.4-5.0)
[2017-05-18 08:05] VITALS: BP 92/78; PULSE 123; TEMP 98.1
[2017-05-18 09:26] LABS: BAND 10 % (0-10); EOSINOPHIL 4 % (0-4); LYMPHOCYTE 27 % (20.0-51.0); NEUTROPHILS 39 % (42.0-75.2); PLATELET ESTIMATE NORMAL (NORMAL)
[2017-05-18 09:28] LABS: ANISOCYTOSIS 1+; HYPOCHROMIA 1+
[2017-05-18 12:14] VITALS: BP 92/58; PULSE 110; TEMP 97.6
[2017-05-18 15:45] VITALS: BP 111/76; PULSE 112; TEMP 98.1
[2017-05-18 19:32] VITALS: BP 111/77; PULSE 92; TEMP 98.3
[2017-05-18 23:55] VITALS: BP 101/59; PULSE 99; TEMP 98.1
[2017-05-19 04:02] VITALS: BP 103/62; PULSE 91; TEMP 97.4
[2017-05-19 06:16] LABS: MEAN CELL VOLUME 108 fl (80.0-100.0); MEAN CORPUSCULAR HGB CONC 33 g/dl (33.0-37.0); MEAN PLATELET VOLUME 9.2 fl (7.4-10.4); PLATELET COUNT 259 K/mm3 (130-400); RED BLOOD COUNT 2.55 M/mm3 (4.10-5.30); REDCELL DISTRIBUTION WIDTH-CV 16.7 % (11.5-14.5)
[2017-05-19 06:21] LABS: HEMATOCRIT 27.5 % (37.0-47.0); MEAN CORPUSCULAR HEMOGLOBIN 35 pg (27.0-31.0)
[2017-05-19 06:22] LABS: CALCIUM 8.9 mg/dL (8.4-10.2); CREATININE, serum 0.68 mg/dL (0.52-1.25); POTASSIUM 3.7 mmol/L (3.4-5.0)
[2017-05-19 07:13] LABS: ANISOCYTOSIS 1+; BAND 10 % (0-10); EOSINOPHIL 3 % (0-4); HYPOCHROMIA 1+; LYMPHOCYTE 30 % (20.0-51.0); NEUTROPHILS 30 % (42.0-75.2); PLATELET ESTIMATE NORMAL (NORMAL)
[2017-05-19 07:45] VITALS: BP 115/83; PULSE 83; TEMP 99
[2017-05-19] MEDS ORDERED: B-121000 MCG PO (11:07)
[2017-05-19 11:57] VITALS: BP 105/63; PULSE 87; TEMP 98.7
[2017-05-19 12:51] VITALS: BP 105/63; PULSE 87; TEMP 98.7
== END 2017-05-19 14:14 | DRG 896 ==
LOC: MEDICAL 14:43 → ICU 14:54 → MEDICAL 05-13 15:15
PROVIDERS: Internal Medicine; Nurse Practitioner Family; Physician Assistant
DX: F10.231 Alcohol dependence with withdrawal delirium (principal); E43 Unspecified severe protein-calorie malnutrition; K86.0 Alcohol-induced chronic pancreatitis; F10.251 Alcohol dependence with alcohol-induced psychotic disorder with hallucinations; F10.24 Alcohol dependence with alcohol-induced mood disorder; Y90.3 Blood alcohol level of 60-79 mg/100 ml; R62.7 Adult failure to thrive; K70.10 Alcoholic hepatitis without ascites; J44.9 Chronic obstructive pulmonary disease, unspecified; E83.42 Hypomagnesemia; I10 Essential (primary) hypertension; D64.9 Anemia, unspecified; K20.9 Esophagitis, unspecified
CPT/HCPCS: 99223-AI; 99231-AI; 99232-AI; 99233-AI; 99239; C9113; J0696; J0780; J2060; J2405; J3475

== ENCOUNTER → 2017-05-26 | Outpatient (CLI) | payer MEDICARE, MEDICAID ==
[~2017-05-26] MED LIST changes: +B-121000 MCG PO
[2017-05-26 16:10] LABS: BASO # 0.1 (0.0-0.2); BASO % 2.5 % (0.0-2.0); CALCIUM 9.2 mg/dL (8.4-10.2); CREATININE, serum 0.72 mg/dL (0.52-1.25); EOS # 0.1 (0.0-0.7); EOS % 3.3 % (0-4.0); GRAN # 2.1 (1.4-6.5); GRAN % 53.4 % (42.2-75.2); LYMPH # 1.2 (1.2-3.4); LYMPH % 30.8 % (20.0-51.0); MAGNESIUM 1.9 mg/dL (1.6-2.3); MEAN CELL VOLUME 107 fl (80.0-100.0); MEAN CORPUSCULAR HGB CONC 32 g/dl (33.0-37.0); MONO # 0.4 (0.1-0.6); MONO % 9.5 % (1.7-9.3); PLATELET COUNT 482 K/mm3 (130-400); POTASSIUM 4.1 mmol/L (3.4-5.0); RED BLOOD COUNT 2.93 M/mm3 (4.10-5.30); REDCELL DISTRIBUTION WIDTH-CV 15.8 % (11.5-14.5)
[2017-05-26 16:12] LABS: HEMATOCRIT 31.3 % (37.0-47.0); MEAN CORPUSCULAR HEMOGLOBIN 34 pg (27.0-31.0)
== END ==
LOC: COL.LAB 12:10
PROVIDERS: Family Medicine
DX: E87.8 Other disorders of electrolyte and fluid balance, not elsewhere classified (principal); F10.20 Alcohol dependence, uncomplicated; Z88.0 Allergy status to penicillin

== ENCOUNTER → 2017-05-27 | Outpatient (CLI) | payer MEDICARE, MEDICAID | LOC: BHSO 13:22 | DX: F10.20 Alcohol dependence, uncomplicated (principal) | CPT/HCPCS: G0463 ==

== ENCOUNTER → 2017-06-19 | Outpatient (CLI) | payer MEDICARE, MEDICAID | LOC: BHSO 13:29 | DX: F10.20 Alcohol dependence, uncomplicated (principal) | CPT/HCPCS: G0463 ==